=== PATIENT | female | born 1945 | race Two or more races ===

== ENCOUNTER 2017-06-17 09:15 | Outpatient (CLI) | payer OTHER ==
[~2017-06-17 09:15] MED LIST: AVALIDE 150-12.1 TA1; BAYER ASPIRIN325 MG PO; BENADRYL50 MG PO; GLIPIZIDE10 MG PO; GLUCOPHAGE XR500 MG; MOBIC15 MG PO; NABUMETONE750 MG PO; OMEPRAZOLE PO; ZOCOR20 MG PO
== END 2017-06-17 09:17 | disposition home or self-care (01) ==
LOC: NUCLEAR 09:15
DX: M81.0 Age-related osteoporosis without current pathological fracture (principal); I10 Essential (primary) hypertension; M89.9 Disorder of bone, unspecified; E78.9 Disorder of lipoprotein metabolism, unspecified; E55.9 Vitamin D deficiency, unspecified; E11.9 Type 2 diabetes mellitus without complications; E11.51 Type 2 diabetes mellitus with diabetic peripheral angiopathy without gangrene; E03.9 Hypothyroidism, unspecified; Z12.39 Encounter for other screening for malignant neoplasm of breast

== ENCOUNTER 2017-11-22 08:20 | Outpatient (CLI) | payer OTHER | END 2017-11-22 08:27 | disposition home or self-care (01) | LOC: SONOGRAMA 08:20 → MAMO-SONO 08:45 | DX: R10.84 Generalized abdominal pain (principal) ==

== ENCOUNTER 2018-08-01 11:59 | Outpatient (CLI) | payer OTHER | END 2018-08-01 12:07 | disposition home or self-care (01) | LOC: RAD 11:59 | DX: M25.511 Pain in right shoulder (principal) ==

== ENCOUNTER 2018-09-08 10:11 | Outpatient (CLI) | payer OTHER | END 2018-09-08 14:19 | disposition home or self-care (01) | LOC: NUCLEAR 10:11 | DX: R07.89 Other chest pain (principal); I20.9 Angina pectoris, unspecified | CPT/HCPCS: 78452; 93017; A9500; J0153 ==

== ENCOUNTER 2018-09-28 12:44 | Outpatient (CLI) | payer OTHER | END 2018-09-28 12:55 | disposition home or self-care (01) | LOC: MAMO-SONO 12:44 | DX: Z12.31 Encounter for screening mammogram for malignant neoplasm of breast (principal); Z87.898 Personal history of other specified conditions ==

== ENCOUNTER 2018-12-19 13:22 | Outpatient (CLI) | payer OTHER | END 2018-12-19 13:32 | disposition home or self-care (01) | LOC: RAD 13:22 | DX: M25.552 Pain in left hip (principal) ==

== ENCOUNTER 2019-01-03 18:29 | Emergency (ER) | payer OTHER ==
[~2019-01-03] VITALS: Ht 160 cm; Wt 98.0 kg
== END 2019-01-03 21:09 | disposition home or self-care (01) ==
LOC: ER 18:29
DX: S60.211A Contusion of right wrist, initial encounter (principal); M19.131 Post-traumatic osteoarthritis, right wrist; W18.09XA Striking against other object with subsequent fall, initial encounter; Y93.89 Activity, other specified; Y92.018 Other place in single-family (private) house as the place of occurrence of the external cause; Y99.8 Other external cause status

== ENCOUNTER 2019-11-22 10:18 | Outpatient (CLI) | payer OTHER | END 2019-11-22 10:20 | disposition home or self-care (01) | LOC: MAMO-SONO 10:18 | PROVIDERS: ATTEND Specialist | DX: Z12.31 Encounter for screening mammogram for malignant neoplasm of breast (principal); N64.59 Other signs and symptoms in breast ==

== ENCOUNTER 2020-03-11 12:41 | Emergency (ER) | payer OTHER ==
[~2020-03-11] VITALS: Ht 160 cm; Wt 97.5 kg
== END 2020-03-11 15:44 | disposition home or self-care (01) ==
LOC: ER 12:41
DX: M54.5 Low back pain (principal); M25.551 Pain in right hip

== ENCOUNTER 2020-06-04 08:50 | Outpatient (CLI) | payer OTHER | END 2020-06-04 09:02 | disposition home or self-care (01) | LOC: SONOGRAMA 08:50 → MAMO-SONO 09:15 | PROVIDERS: ATTEND Internal Medicine Gastroenterology | DX: K76.0 Fatty (change of) liver, not elsewhere classified (principal); R10.84 Generalized abdominal pain ==

== ENCOUNTER 2020-07-30 14:31 | Outpatient (CLI) | payer OTHER | END 2020-07-30 14:32 | disposition home or self-care (01) | LOC: NUCLEAR 14:31 | PROVIDERS: ATTEND Internal Medicine Sports Medicine | DX: M81.0 Age-related osteoporosis without current pathological fracture (principal) ==

== ENCOUNTER 2020-11-07 07:35 | Outpatient (CLI) | payer OTHER | END 2020-11-07 07:41 | disposition home or self-care (01) | LOC: NUCLEAR 07:35 | DX: I20.8 Other forms of angina pectoris (principal); E78.49 Other hyperlipidemia | CPT/HCPCS: 78452; 93017; A9500; J0153 ==

== ENCOUNTER 2021-06-11 11:50 | Outpatient (CLI) | payer OTHER ==
[2021-06-20] MEDS ORDERED: NORFLEX100MG PO (08:54)
== END 2021-06-11 11:57 | disposition home or self-care (01) ==
LOC: MAMO-SONO 11:50
PROVIDERS: ATTEND Specialist
DX: Z12.31 Encounter for screening mammogram for malignant neoplasm of breast (principal); N63.0 Unspecified lump in unspecified breast

== ENCOUNTER 2021-06-20 09:31 | Outpatient (CLI) | payer OTHER ==
[~2021-06-20 09:31] MED LIST changes: +NORFLEX100MG PO
== END 2021-06-20 09:32 | disposition home or self-care (01) ==
LOC: RAD 09:31
PROVIDERS: ATTEND Physical Medicine & Rehabilitation
DX: M95.8 Other specified acquired deformities of musculoskeletal system (principal)

== ENCOUNTER 2021-11-06 10:07 | Outpatient (CLI) | payer OTHER ==
[~2021-11-06 10:07] MED LIST changes: +DICLOFENAC POTA50 MG PO
== END 2021-11-06 10:17 | disposition home or self-care (01) ==
LOC: MRI 10:07
PROVIDERS: ATTEND Physical Medicine & Rehabilitation
DX: M54.50 Low back pain, unspecified (principal)